=== PATIENT | male | born 1960 | race Two or more races ===

== ENCOUNTER 2024-03-28 14:35 | Observation (INO) | payer MEDICAID, OTHER, SELFPAY ==
[~2024-03-28] VITALS: Ht 167.6 cm; Wt 72.1 kg
[2024-03-28] MEDS ORDERED: [UNRECOGNIZED DRUG - OTHER] PO (22:39)
[2024-03-28] MEDS ORDERED: [UNRECOGNIZED DRUG - OTHER] PO (22:39)
[2024-03-28] MEDS ORDERED: HEAL1TAB PO ×2 (22:39)
[2024-03-28] MEDS ORDERED: [UNRECOGNIZED DRUG - OTHER] (22:39)
[2024-03-28] MEDS ORDERED: MACA500C2 PO (22:39)
[2024-03-28] MEDS ORDERED: HOME MED LIST COMPLETE! XX SCH (22:45)
[2024-03-29] MEDS: cefTRIAXone SOD 1 GM in D5W MINI-BAG PLUS 50 ML IV ONE (01:25)
[2024-03-29 02:05] LABS: BASO # 0.1 10^3/uL (0.0-0.2); BASO % 0.6 % (0.0-1.0); EOS # 0.1 10^3/uL (0.0-0.5); EOS % 1.1 % (0.0-3.0); HEMATOCRIT 44.4 % (42.0-52.0); LYMPH # 2.8 10^3/uL (1.5-5.0); LYMPH % 31.3 % (24.0-44.0); MEAN CORPUSCULAR HGB CONC 31.5 g/dl (32.0-36.5); MEAN CORPUSCULAR VOLUME 82.4 fl (80.0-96.0); MONO # 0.5 10^3/uL (0.0-0.8); MONO % 5.1 % (2.0-8.0); NEUTROPHILS # 5.6 10^3/uL (1.5-8.5); NEUTROPHILS % 61.7 % (36.0-66.0); PLATELET COUNT, AUTOMATED 171 10^3/uL (150-450); RED BLOOD COUNT 5.39 10^6/uL (4.30-6.10); WHITE BLOOD COUNT 9.1 10^3/uL (4.0-10.0)
[2024-03-29 02:14] LABS: ALBUMIN 3.1 G/DL (3.2-5.2); BILIRUBIN,TOTAL 0.4 MG/DL (0.3-1.2); CALCIUM LEVEL 10.2 MG/DL (8.3-10.6); CREATININE FOR GFR 1.55 MG/DL (0.70-1.30); GLOMERULAR FILTRATION RATE 58.9 (>49); POTASSIUM SERUM 3.8 MMOL/L (3.5-5.1)
[2024-03-29 03:32] LABS: CALCIUM LEVEL 9.6 MG/DL (8.3-10.6); CREATININE FOR GFR 1.58 MG/DL (0.70-1.30); GLOMERULAR FILTRATION RATE 57.6 (>49); POTASSIUM SERUM 3.8 MMOL/L (3.5-5.1)
[2024-03-29] MEDS ORDERED: ACETAMINOPHEN TAB 650MG DOSE (2X325MG) PO PRN (05:00)
[2024-03-29] MEDS ORDERED: MOM 30ML SUSPENSION UDC PO PRN (05:00)
[2024-03-29] MEDS: HEPARIN SOD (PORCINE) 5000UNITS/ML 1ML VIAL/SYRINGE SC SCH (06:00)
[2024-03-29 08:45] LABS: CHOLESTEROL RISK RATIO 4.76 (<5); HDL CHOLESTEROL 41.3 MG/DL (>40); LDL CHOLESTEROL 135.9 MG/DL (<100); NON-HDL-C 155.7 MG/DL
[2024-03-29] MEDS: DOCUSATE SODIUM 100MG CAPSULE PO SCH (09:20)
[2024-03-29] MEDS ORDERED: GLUCOSE 4 GM CHEW PO PRN (12:10)
[2024-03-29] MEDS ORDERED: GLUCAGON INJ 1MG VIAL SC PRN (12:10)
[2024-03-29] MEDS ORDERED: DEXTROSE 50% 50ML SYRINGE IV PRN (12:10)
[2024-03-29] MEDS ORDERED: ISOVUE-370 76% 100ML VIAL As Ordered ONE (12:11)
[2024-03-29] MEDS: NS 1,000 ML IV SCH (12:55)
[2024-03-29] MEDS: INSULIN LISPRO (NovoLOG) PER UNIT SC SCH ×2 (12:55→20:40)
[2024-03-29 12:57] VITALS: BP 141/88; TEMP 97.7; O2SAT 99
[2024-03-29] MEDS: **hydrALAZINE HCL** 25 MG TAB PO SCH (14:54)
[2024-03-29 16:00] VITALS: BP 157/95; TEMP 98.2; O2SAT 97
[2024-03-29 19:57] VITALS: BP 160/98; TEMP 98.1; O2SAT 98
[2024-03-29] MEDS: ATORVASTATIN 20 MG TAB PO SCH (20:50)
[2024-03-29] MEDS: cefTRIAXone SOD 1 GM in D5W MINI-BAG PLUS 50 ML IV SCH (22:37)
[2024-03-30] VITALS (11 sets, daily range): BP systolic 122–151; BP diastolic 70–87; TEMP 97.9–98.8; O2SAT 95–99
[2024-03-30 05:59] LABS: HEMATOCRIT 43.7 % (42.0-52.0); HEMOGLOBIN 13.5 g/dl (13.5-17.5); MEAN CORPUSCULAR HEMOGLOBIN 25.7 pg (27.0-33.0); MEAN CORPUSCULAR HGB CONC 30.9 g/dl (32.0-36.5); MEAN CORPUSCULAR VOLUME 83.1 fl (80.0-96.0); PLATELET COUNT, AUTOMATED 186 10^3/uL (150-450); RED BLOOD COUNT 5.26 10^6/uL (4.30-6.10); WHITE BLOOD COUNT 9.1 10^3/uL (4.0-10.0)
[2024-03-30 06:32] LABS: BLOOD UREA NITROGEN 16 MG/DL (9-23); CALCIUM LEVEL 10.3 MG/DL (8.3-10.6); CARBON DIOXIDE LEVEL 29 MMOL/L (20-31); CHLORIDE LEVEL 108 MMOL/L (98-107); CREATININE FOR GFR 1.43 MG/DL (0.70-1.30); GLOMERULAR FILTRATION RATE > 60.0 (>49); GLUCOSE, FASTING 100 MG/DL (74-106); POTASSIUM SERUM 3.9 MMOL/L (3.5-5.1); SODIUM LEVEL 143 MMOL/L (136-145)
[2024-03-30] MEDS ORDERED: MIDAZOLAM INJ 2MG/2ML VIAL As Ordered ONE (07:04)
[2024-03-30] MEDS ORDERED: fentaNYL 100 MCG/2 ML INJECTION As Ordered ONE (07:05)
[2024-03-30] MEDS ORDERED: propofoL 200 MG/20 ML VIAL As Ordered ONE (07:13)
[2024-03-30] MEDS ORDERED: LIDOCAINE 2% 100MG/5ML SDV (FOR ANES.) As Ordered ONE (07:13)
[2024-03-30] MEDS ORDERED: ONDANSETRON 4MG 2ML VIAL As Ordered ONE (07:14)
[2024-03-30] MEDS ORDERED: ACETAMINOPHEN 1000MG 100ML IV BAG As Ordered ONE (07:15)
[2024-03-30] MEDS: ISOVUE-300 61% 100ML VIAL As Ordered ONE (07:59)
[2024-03-30] MEDS: LABETALOL 100MG/20ML VIAL IV PRN (08:55)
[2024-03-30] MEDS: TAMSULOSIN 0.4 MG CAP PO SCH (10:10)
[2024-03-30] MEDS: NS 1,000 ML IV SCH (10:54)
[2024-03-30] MEDS: LEVEMIR (INSULIN DETEMIR) 1 UNITS/0.01ML SC SCH (20:51)
[2024-03-31 03:43] VITALS: BP 134/83; TEMP 99.1; O2SAT 98
[2024-03-31 07:11] LABS: BASO % 0.1 % (0.0-1.0); HEMATOCRIT 41.1 % (42.0-52.0); HEMOGLOBIN 12.8 g/dl (13.5-17.5); LYMPH # 1.9 10^3/uL (1.5-5.0); LYMPH % 11.4 % (24.0-44.0); MEAN CORPUSCULAR HEMOGLOBIN 25.5 pg (27.0-33.0); MEAN CORPUSCULAR HGB CONC 31.1 g/dl (32.0-36.5); MEAN CORPUSCULAR VOLUME 81.9 fl (80.0-96.0); MONO # 0.7 10^3/uL (0.0-0.8); MONO % 4.2 % (2.0-8.0); NEUTROPHILS # 13.9 10^3/uL (1.5-8.5); NEUTROPHILS % 83.7 % (36.0-66.0); PLATELET COUNT, AUTOMATED 186 10^3/uL (150-450); RED BLOOD COUNT 5.02 10^6/uL (4.30-6.10); WHITE BLOOD COUNT 16.6 10^3/uL (4.0-10.0)
[2024-03-31 07:37] LABS: BLOOD UREA NITROGEN 20 MG/DL (9-23); CALCIUM LEVEL 10.3 MG/DL (8.3-10.6); CARBON DIOXIDE LEVEL 26 MMOL/L (20-31); CHLORIDE LEVEL 110 MMOL/L (98-107); GLOMERULAR FILTRATION RATE > 60.0 (>49); GLUCOSE, FASTING 145 MG/DL (74-106); POTASSIUM SERUM 4.3 MMOL/L (3.5-5.1); SODIUM LEVEL 141 MMOL/L (136-145)
[2024-03-31 08:15] VITALS: BP 138/84; TEMP 99.1; O2SAT 96
[2024-03-31 12:00] VITALS: BP 130/78; TEMP 98.1; O2SAT 97
[2024-03-31 20:05] VITALS: BP 138/79; TEMP 99.3; O2SAT 99
[2024-04-01 04:05] VITALS: BP 132/75; TEMP 97.5; TEMP 99.1; O2SAT 97
[2024-04-01 06:33] LABS: BASO % 0.2 % (0.0-1.0); EOS % 0.2 % (0.0-3.0); HEMATOCRIT 41.9 % (42.0-52.0); HEMOGLOBIN 13.1 g/dl (13.5-17.5); LYMPH # 3.8 10^3/uL (1.5-5.0); LYMPH % 28.6 % (24.0-44.0); MEAN CORPUSCULAR HEMOGLOBIN 25.6 pg (27.0-33.0); MEAN CORPUSCULAR HGB CONC 31.3 g/dl (32.0-36.5); MONO # 0.6 10^3/uL (0.0-0.8); MONO % 4.4 % (2.0-8.0); NEUTROPHILS # 8.7 10^3/uL (1.5-8.5); NEUTROPHILS % 66.3 % (36.0-66.0); PLATELET COUNT, AUTOMATED 183 10^3/uL (150-450); RED BLOOD COUNT 5.11 10^6/uL (4.30-6.10); WHITE BLOOD COUNT 13.1 10^3/uL (4.0-10.0)
[2024-04-01 06:57] LABS: CALCIUM LEVEL 10.1 MG/DL (8.3-10.6); CREATININE FOR GFR 1.64 MG/DL (0.70-1.30); GLOMERULAR FILTRATION RATE 55.2 (>49); POTASSIUM SERUM 3.9 MMOL/L (3.5-5.1)
[2024-04-01] MEDS ORDERED: ATOR40TA75 PO (07:10)
[2024-04-01] MEDS ORDERED: SITA50TAB PO (07:10)
[2024-04-01] MEDS ORDERED: AMLO1TAB25 PO (07:10)
[2024-04-01] MEDS ORDERED: FLOM0.4C39 PO (07:10)
[2024-04-01] MEDS ORDERED: METF500T13 PO (07:10)
[2024-04-01] MEDS ORDERED: HYDR25TA87 PO (07:10)
[2024-04-01] MEDS ORDERED: CEFD1CAP9 PO (07:12)
[2024-04-01] MEDS ORDERED: HYDR50TA46 PO (07:12)
[2024-04-01 12:00] VITALS: BP 148/81; TEMP 98.8; O2SAT 96
[2024-04-01 13:23] VITALS: BP 148/80
== END 2024-04-01 14:24 | disposition home or self-care (01) ==
LOC: M ED 14:35 → M ED INP 14:36 → M MSPAV 03-29 16:10
PROVIDERS: ADMIT Student in an Organized Health Care Education/Training Program; ATTEND Internal Medicine
DX: N13.9 Obstructive and reflux uropathy, unspecified (principal); N17.9 Acute kidney failure, unspecified; N39.0 Urinary tract infection, site not specified; N40.0 Benign prostatic hyperplasia without lower urinary tract symptoms; I10 Essential (primary) hypertension; E11.9 Type 2 diabetes mellitus without complications; E78.5 Hyperlipidemia, unspecified; Z79.84 Long term (current) use of oral hypoglycemic drugs; Z79.899 Other long term (current) drug therapy
CPT/HCPCS: 36415; 52332; 74177; 76000; 76775; 80047; 80048; 80053; 80061; 81001; 83036; 85025; 85027; 87088; 87186; 96361; 96365; 96366; 96372; 97116; 97161; 99284; C1769; C1894; C2617; J0131; J0696; J1100; J1815; J1920; J2250; J2405; J3010; Q9967

== ENCOUNTER → 2024-04-20 | Outpatient (CLI) | payer MEDICAID, OTHER ==
[~2024-04-20] MED LIST: AMLO1TAB25 PO; ATOR40TA75 PO; CEFD1CAP9 PO; FLOM0.4C39 PO; HEAL1TAB PO; HYDR25TA87 PO; HYDR50TA46 PO; MACA500C2 PO; METF500T13 PO; SITA50TAB PO; [UNRECOGNIZED DRUG - OTHER]; [UNRECOGNIZED DRUG - OTHER] PO; [UNRECOGNIZED DRUG - OTHER] PO
[2024-04-20 13:29] LABS: BASO # 0.1 10^3/uL (0.0-0.2); BASO % 0.7 % (0.0-1.0); EOS # 0.1 10^3/uL (0.0-0.5); EOS % 1.1 % (0.0-3.0); HEMATOCRIT 42.5 % (42.0-52.0); LYMPH # 2.6 10^3/uL (1.5-5.0); LYMPH % 26.7 % (24.0-44.0); MEAN CORPUSCULAR HEMOGLOBIN 25.4 pg (27.0-33.0); MEAN CORPUSCULAR HGB CONC 30.6 g/dl (32.0-36.5); MEAN CORPUSCULAR VOLUME 83.2 fl (80.0-96.0); MONO # 0.5 10^3/uL (0.0-0.8); NEUTROPHILS # 6.4 10^3/uL (1.5-8.5); NEUTROPHILS % 66.3 % (36.0-66.0); PLATELET COUNT, AUTOMATED 195 10^3/uL (150-450); RED BLOOD COUNT 5.11 10^6/uL (4.30-6.10); WHITE BLOOD COUNT 9.6 10^3/uL (4.0-10.0)
[2024-04-20 13:56] LABS: CREATININE FOR GFR 1.74 MG/DL (0.70-1.30); GLOMERULAR FILTRATION RATE 42.5 (>49); POTASSIUM SERUM 4.2 MMOL/L (3.5-5.1)
== END ==
LOC: M PLALAB 10:42
PROVIDERS: ATTEND Student in an Organized Health Care Education/Training Program
DX: Z09 Encounter for follow-up examination after completed treatment for conditions other than malignant neoplasm (principal)

== ENCOUNTER → 2024-04-25 | Outpatient (REF) | payer MEDICAID, OTHER ==
[2024-04-25 19:13] LABS: APPEARANCE, URINE CLOUDY (CLEAR); BACTERIA, URINE AUTO NEGATIVE (NEGATIVE); BILIRUBIN, URINE AUTO NEGATIVE (NEGATIVE); BLOOD, URINE BLOOD 1+ (NEGATIVE); COLOR, URINE AMBER (YELLOW); GLUCOSE, URINE (UA) AUTO NEGATIVE (NEGATIVE); KETONE, URINE AUTO NEGATIVE (NEGATIVE); LEUKOCYTE ESTERASE, URINE AUTO 3+ (NEGATIVE); MUCUS, URINE SMALL (NEGATIVE); NITRITE, URINE AUTO NEGATIVE (NEGATIVE); PROTEIN, URINE AUTO 2+ mg/dL (NEGATIVE); RBC, URINE AUTO 15 /HPF (0-3); SPECIFIC GRAVITY URINE AUTO 1.012 (1.002-1.035); SQUAMOUS EPITHELIAL CELL UR AU 5 /HPF (0-6); UROBILINOGEN, URINE AUTO 0.2 mg/dL (0.0-2.0); WBC, URINE AUTO TNTC /HPF (0-3)
== END ==
LOC: M SMT 17:06
PROVIDERS: ATTEND Urology
DX: N21.0 Calculus in bladder (principal)

== ENCOUNTER → 2024-07-18 | Outpatient (CLI) | payer OTHER ==
[2024-07-18 18:20] LABS: BASO # 0.1 10^3/uL (0.0-0.2); BASO % 0.6 % (0.0-1.0); EOS # 0.1 10^3/uL (0.0-0.5); EOS % 0.9 % (0.0-3.0); HEMATOCRIT 43.7 % (42.0-52.0); HEMOGLOBIN 13.7 g/dl (13.5-17.5); LYMPH # 3.2 10^3/uL (1.5-5.0); LYMPH % 31.5 % (24.0-44.0); MEAN CORPUSCULAR HEMOGLOBIN 26.2 pg (27.0-33.0); MEAN CORPUSCULAR HGB CONC 31.4 g/dl (32.0-36.5); MEAN CORPUSCULAR VOLUME 83.7 fl (80.0-96.0); MONO # 0.6 10^3/uL (0.0-0.8); MONO % 5.6 % (2.0-8.0); NEUTROPHILS # 6.3 10^3/uL (1.5-8.5); NEUTROPHILS % 61.2 % (36.0-66.0); PLATELET COUNT, AUTOMATED 174 10^3/uL (150-450); RED BLOOD COUNT 5.22 10^6/uL (4.30-6.10); WHITE BLOOD COUNT 10.3 10^3/uL (4.0-10.0)
[2024-07-18 18:53] LABS: ALBUMIN 3.9 G/DL (3.2-5.2); BILIRUBIN,TOTAL 0.5 MG/DL (0.3-1.2); CALCIUM LEVEL 11.9 MG/DL (8.3-10.6); CHOLESTEROL RISK RATIO 2.61 (<5); CREATININE FOR GFR 1.42 MG/DL (0.70-1.30); GLOMERULAR FILTRATION RATE 53.8 (>49); HDL CHOLESTEROL 53.5 MG/DL (>40); LDL CHOLESTEROL 72.9 MG/DL (<100); NON-HDL-C 86.5 MG/DL; POTASSIUM SERUM 4.6 MMOL/L (3.5-5.1); TOTAL PROTEIN 8.4 G/DL (5.7-8.2)
[2024-07-18 18:56] LABS: FREE T4 1.02 NG/DL (0.89-1.76); THYROID STIMULATING HORMONE 1.936 uIU/ML (0.55-4.78); TOTAL 25(OH) VITAMIN D 32.6 NG/ML (20.0-100.0)
[2024-07-18 19:03] LABS: HEMOGLOBIN A1c 6.1 % (4.0-6.0)
== END ==
LOC: M PLALAB 16:47
PROVIDERS: ATTEND Student in an Organized Health Care Education/Training Program
DX: Z01.89 Encounter for other specified special examinations (principal)

== ENCOUNTER → 2024-07-18 | Outpatient (REF) | payer OTHER | LOC: M SFHCPLAZ 16:28 | PROVIDERS: ATTEND Student in an Organized Health Care Education/Training Program | DX: Z01.89 Encounter for other specified special examinations (principal) ==

== ENCOUNTER → 2024-07-21 | Outpatient (CLI) | payer OTHER ==
[2024-07-21 16:23] LABS: PTH INTACT 50.7 PG/ML (18.5-88.0)
[2024-07-21 16:25] LABS: FOLATE 9.74 NG/ML (>5.4)
== END ==
LOC: M PLALAB 12:48
PROVIDERS: ATTEND Student in an Organized Health Care Education/Training Program
DX: E83.52 Hypercalcemia (principal)

== ENCOUNTER → 2024-08-11 | Outpatient (REF) | payer OTHER | LOC: M SFHCPLAZ 13:15 | PROVIDERS: ATTEND Student in an Organized Health Care Education/Training Program | DX: E83.52 Hypercalcemia (principal) ==

== ENCOUNTER → 2024-08-17 | Outpatient (REF) | payer OTHER, MEDICAID ==
[~2024-08-17] MED LIST changes: +ASPI-226 PO; +ATOR80TA59 PO; +CITA20TA7 PO; +CLOP75TA2 PO; +METF-839 PO; +TAMS1CAP17 PO
[2024-08-17 19:00] LABS: CALCIUM LEVEL 11.1 MG/DL (8.3-10.6); CREATININE FOR GFR 1.45 MG/DL (0.70-1.30); GLOMERULAR FILTRATION RATE 52.5 (>49); POTASSIUM SERUM 4.5 MMOL/L (3.5-5.1)
== END ==
LOC: M SFHCPLAZ 12:05
PROVIDERS: ATTEND Family Medicine
DX: E83.52 Hypercalcemia (principal)

== ENCOUNTER → 2024-08-17 | Outpatient (CLI) | payer OTHER, MEDICAID ==
[~2024-08-17] MED LIST changes: -ASPI-226 PO; -ATOR80TA59 PO; -CITA20TA7 PO; -CLOP75TA2 PO; -METF-839 PO; -TAMS1CAP17 PO
[2024-08-17 15:32] LABS: CALCIUM LEVEL 10.9 MG/DL (8.3-10.6); CREATININE FOR GFR 1.48 MG/DL (0.70-1.30); GLOMERULAR FILTRATION RATE 51.3 (>49); POTASSIUM SERUM 4.6 MMOL/L (3.5-5.1)
[2024-08-18 12:56] LABS: PROTEIN CREATININE RATIO 446 mg/g creat (25-148); T PROTEIN CREATININE RATIO 0.446 (0.025-0.148); UPEP CREATININE 175 mg/dL (20-320); UPEP TOTAL PROTEIN 78 mg/dL (5-25)
== END ==
LOC: M PLALAB 12:15
PROVIDERS: ATTEND Student in an Organized Health Care Education/Training Program
DX: E83.52 Hypercalcemia (principal)

== ENCOUNTER → 2024-08-29 | Outpatient (REF) | payer OTHER, MEDICAID | LOC: M SFHCPLAZ 01:35 | PROVIDERS: ATTEND Student in an Organized Health Care Education/Training Program | DX: D47.2 Monoclonal gammopathy (principal) ==

== ENCOUNTER → 2024-09-08 | Outpatient (CLI) | payer OTHER ==
[~2024-09-08] MED LIST changes: +PROHANCE 279.3MG/ML 15ML VIAL ONE
== END ==
LOC: M PLAIMG 07:21
PROVIDERS: ATTEND Student in an Organized Health Care Education/Training Program
DX: R41.89 Other symptoms and signs involving cognitive functions and awareness (principal)

== ENCOUNTER 2024-09-09 21:34 | Inpatient (IN) | payer OTHER ==
[~2024-09-09] VITALS: Ht 162.6 cm; Wt 64.9 kg
[~2024-09-09 21:34] MED LIST changes: -PROHANCE 279.3MG/ML 15ML VIAL ONE
[2024-09-09 23:00] VITALS: BP 153/83; TEMP 97.4; O2SAT 99
[2024-09-09 23:15] VITALS: BP 146/81; TEMP 97.4; O2SAT 100
[2024-09-09 23:30] VITALS: BP 156/84; TEMP 97.4; O2SAT 100
[2024-09-09 23:45] VITALS: BP 156/91; TEMP 97.4; O2SAT 100
[2024-09-10] VITALS: BP 179/86; TEMP 97.4; O2SAT 99
[2024-09-10] MEDS: ASPIRIN 325 MG TAB PO ONE (00:12)
[2024-09-10 00:15] LABS: BLOOD UREA NITROGEN 17 MG/DL (9-23); CALCIUM LEVEL 10.9 MG/DL (8.3-10.6); CARBON DIOXIDE LEVEL 28 MMOL/L (20-31); CHLORIDE LEVEL 105 MMOL/L (98-107); CK-MB VALUE MASS < 1.0 NG/ML (<3.6); CREATININE FOR GFR 1.37 MG/DL (0.70-1.30); GLOMERULAR FILTRATION RATE 56.1 (>49); GLUCOSE, FASTING 109 MG/DL (74-106); POTASSIUM SERUM 4.4 MMOL/L (3.5-5.1); SODIUM LEVEL 142 MMOL/L (136-145)
[2024-09-10 00:18] LABS: CPK CREATINE PHOSPHOKINASE 118 U/L (46-171); MB/CK RELATIVE INDEX 0.84 (< OR =4)
[2024-09-10 00:35] LABS: BASO # 0.1 10^3/uL (0.0-0.2); BASO % 0.6 % (0.0-1.0); EOS # 0.1 10^3/uL (0.0-0.5); HEMATOCRIT 41.4 % (42.0-52.0); LYMPH # 2.8 10^3/uL (1.5-5.0); LYMPH % 30.3 % (24.0-44.0); MEAN CORPUSCULAR HEMOGLOBIN 26.3 pg (27.0-33.0); MEAN CORPUSCULAR HGB CONC 31.4 g/dl (32.0-36.5); MEAN CORPUSCULAR VOLUME 83.8 fl (80.0-96.0); MONO # 0.6 10^3/uL (0.0-0.8); MONO % 6.1 % (2.0-8.0); NEUTROPHILS # 5.7 10^3/uL (1.5-8.5); NEUTROPHILS % 61.8 % (36.0-66.0); PLATELET COUNT, AUTOMATED 187 10^3/uL (150-450); RED BLOOD COUNT 4.94 10^6/uL (4.30-6.10); WHITE BLOOD COUNT 9.2 10^3/uL (4.0-10.0)
[2024-09-10] MEDS ORDERED: ISOVUE-370 76% 100ML VIAL As Ordered ONE (00:37)
[2024-09-10 01:00] VITALS: BP 157/84; TEMP 97.4; O2SAT 100
[2024-09-10 01:09] LABS: INR 0.92; PROTHROMBIN TIME 12.7 SECONDS (12.5-14.5)
[2024-09-10] MEDS: ATORVASTATIN 20 MG TAB PO ONE (01:49)
[2024-09-10] MEDS: CLOPIDOGREL 75 MG TAB PO STA (01:49)
[2024-09-10] MEDS ORDERED: MOM 30ML SUSPENSION UDC PO PRN (02:25)
[2024-09-10] MEDS ORDERED: MAALOX 30 ML SUSP *UDC PO PRN (02:25)
[2024-09-10] MEDS ORDERED: ACETAMINOPHEN 325 MG TAB PO PRN (02:25)
[2024-09-10] MEDS ORDERED: GLUCAGON INJ 1MG VIAL SC PRN (03:10)
[2024-09-10] MEDS ORDERED: GLUCOSE 4 GM CHEW PO PRN (03:10)
[2024-09-10] MEDS ORDERED: DEXTROSE 50% 50ML SYRINGE IV PRN (03:10)
[2024-09-10 04:47] LABS: CK-MB VALUE MASS < 1.0 NG/ML (<3.6)
[2024-09-10 04:48] LABS: CPK CREATINE PHOSPHOKINASE 111 U/L (46-171)
[2024-09-10 04:49] LABS: ALBUMIN 3.5 G/DL (3.2-5.2); ALKALINE PHOSPHATASE 38 U/L (40-129); ALT/SGPT 10 U/L (7.0-40); AST/SGOT 8 U/L (<34); BILIRUBIN,DIRECT 0.1 MG/DL (<0.4); BILIRUBIN,TOTAL 0.4 MG/DL (0.3-1.2); CHOLESTEROL LEVEL 112 MG/DL (<200); CHOLESTEROL RISK RATIO 2.02 (<5); HDL CHOLESTEROL 55.3 MG/DL (>40); LDL CHOLESTEROL 47.1 MG/DL (<100); NON-HDL-C 56.7 MG/DL; TOTAL PROTEIN 7.1 G/DL (5.7-8.2); TRIGLYCERIDES LEVEL 48 MG/DL (<150)
[2024-09-10] MEDS ORDERED: ASPI-226 PO (05:16)
[2024-09-10] MEDS ORDERED: METF-839 PO (05:16)
[2024-09-10] MEDS ORDERED: TAMS1CAP17 PO (05:16)
[2024-09-10] MEDS ORDERED: CITA20TA7 PO (05:16)
[2024-09-10] MEDS ORDERED: AMLO1TAB25 PO (05:16)
[2024-09-10] MEDS ORDERED: HYDR50TA46 PO (05:16)
[2024-09-10] MEDS ORDERED: ATOR80TA59 PO (05:16)
[2024-09-10] MEDS ORDERED: HOME MED LIST COMPLETE! XX SCH (05:20)
[2024-09-10 05:27] LABS: HEMOGLOBIN A1c 5.7 % (4.0-6.0)
[2024-09-10] MEDS: INSULIN LISPRO (NovoLOG) PER UNIT SC SCH (07:30)
[2024-09-10 07:40] LABS: BASO # 0.1 10^3/uL (0.0-0.2); BASO % 0.6 % (0.0-1.0); EOS # 0.1 10^3/uL (0.0-0.5); EOS % 1.6 % (0.0-3.0); HEMATOCRIT 41.1 % (42.0-52.0); HEMOGLOBIN 12.8 g/dl (13.5-17.5); LYMPH # 3.3 10^3/uL (1.5-5.0); LYMPH % 39.2 % (24.0-44.0); MEAN CORPUSCULAR HGB CONC 31.1 g/dl (32.0-36.5); MEAN CORPUSCULAR VOLUME 83.5 fl (80.0-96.0); MONO # 0.5 10^3/uL (0.0-0.8); MONO % 6.2 % (2.0-8.0); NEUTROPHILS # 4.4 10^3/uL (1.5-8.5); NEUTROPHILS % 52.3 % (36.0-66.0); PLATELET COUNT, AUTOMATED 184 10^3/uL (150-450); RED BLOOD COUNT 4.92 10^6/uL (4.30-6.10); WHITE BLOOD COUNT 8.3 10^3/uL (4.0-10.0)
[2024-09-10 08:06] LABS: ALBUMIN 3.4 G/DL (3.2-5.2); ALKALINE PHOSPHATASE 37 U/L (40-129); ALT/SGPT 10 U/L (7.0-40); AST/SGOT 10 U/L (<34); BILIRUBIN,TOTAL 0.4 MG/DL (0.3-1.2); BLOOD UREA NITROGEN 14 MG/DL (9-23); CARBON DIOXIDE LEVEL 32 MMOL/L (20-31); CHLORIDE LEVEL 105 MMOL/L (98-107); CREATININE FOR GFR 1.39 MG/DL (0.70-1.30); GLOMERULAR FILTRATION RATE 55.1 (>49); GLUCOSE, FASTING 102 MG/DL (74-106); MAGNESIUM LEVEL 1.6 MG/DL (1.8-2.4); POTASSIUM SERUM 4.2 MMOL/L (3.5-5.1); SODIUM LEVEL 142 MMOL/L (136-145)
[2024-09-10 08:07] LABS: THYROID STIMULATING HORMONE 2.752 uIU/ML (0.55-4.78)
[2024-09-10 08:08] LABS: VITAMIN B12 LEVEL 621 PG/ML (211-911)
[2024-09-10 08:11] LABS: FOLATE 8.05 NG/ML (>5.4)
[2024-09-10] MEDS: MAG SULF 1GM/100ML (MAG RUN) 1 GM in IV 1 EA IV SCH (09:24)
[2024-09-10] MEDS: DOCUSATE SODIUM 100MG CAPSULE PO SCH (09:25)
[2024-09-10 09:26] VITALS: BP 154/90
[2024-09-10] MEDS: **hydrALAZINE** 50 MG TAB PO SCH (09:26)
[2024-09-10] MEDS: ASPIRIN 81MG ENTERIC TABLET PO SCH (09:27)
[2024-09-10] MEDS: CitaloPRAM (CeleXA) 20 MG TAB PO SCH (09:27)
[2024-09-10] MEDS: TAMSULOSIN 0.4 MG CAP PO SCH (09:27)
[2024-09-10] MEDS: HEPARIN SOD (PORCINE) 5000UNITS/ML 1ML VIAL/SYRINGE SC SCH (09:28)
[2024-09-10] MEDS ORDERED: CLOP75TA2 PO (15:48)
[2024-09-10 16:50] VITALS: BP 125/70; O2SAT 99
[2024-09-10 16:53] VITALS: TEMP 98.2
[2024-09-10] MEDS ORDERED: CLOPIDOGREL 75 MG TAB PO SCH (21:00)
[2024-09-10] MEDS ORDERED: ATORVASTATIN 20 MG TAB PO SCH (21:00)
[2024-09-10] MEDS ORDERED: INSULIN LISPRO (NovoLOG) PER UNIT SC SCH (21:00)
== END 2024-09-10 17:29 | disposition home or self-care (01) | DRG 45 ==
LOC: M ED 21:34 → M ED INP 09-10 02:23
PROVIDERS: ADMIT Student in an Organized Health Care Education/Training Program; ATTEND Internal Medicine
DX: I63.9 Cerebral infarction, unspecified (principal); Q28.2 Arteriovenous malformation of cerebral vessels; F03.90 Unspecified dementia, unspecified severity, without behavioral disturbance, psychotic disturbance, mood disturbance, and anxiety; E83.52 Hypercalcemia; E11.9 Type 2 diabetes mellitus without complications; I12.9 Hypertensive chronic kidney disease with stage 1 through stage 4 chronic kidney disease, or unspecified chronic kidney disease; E78.5 Hyperlipidemia, unspecified; N18.31 Chronic kidney disease, stage 3a; M48.02 Spinal stenosis, cervical region; I66.21 Occlusion and stenosis of right posterior cerebral artery; Z79.899 Other long term (current) drug therapy; Z79.82 Long term (current) use of aspirin; Z96.641 Presence of right artificial hip joint

== ENCOUNTER → 2024-09-10 | Outpatient (CLI) | payer OTHER ==
[~2024-09-10] MED LIST changes: +ASPI-226 PO; +ATOR80TA59 PO; +CITA20TA7 PO; +CLOP75TA2 PO; +METF-839 PO; +TAMS1CAP17 PO
== END ==
LOC: M EKG 12:10
PROVIDERS: ATTEND Internal Medicine Interventional Cardiology
DX: I63.89 Other cerebral infarction (principal); Z53.9 Procedure and treatment not carried out, unspecified reason